=== PATIENT | male | born 1970 | race Caucasian/White ===

== ENCOUNTER 2017-04-20 20:31 | Emergency (ER) | payer MEDICARE, MEDICAID ==
[2017-04-20 20:54] VITALS: BP 115/80
--- NOTE | 2017-04-20 21:39 | UC ---
Milady Sauceda Edward, scribed for Tyler Mcnulty MD on 04/20/17 at 2114 . Ear Complaint HPI - HPI Summary HPI Summary: 46 y/o male presents to [facility] c/o R ear pain. There is pain in both ears starting a couple of weeks ago and getting progressively worse; pain is worse in the R ear. The pain is rated at a 1/10 characterized as an ache. Patient also has ear wax buildup in both ears. Patient went hiking a couple of weeks ago and has concerns for a tick bite. PMHx ear wax buildup and eczema. - History of Current Complaint Chief Complaint: UCEar Stated Complaint: TICK IN EAR Time Seen by Provider: 04/20/17 21:08 Hx Obtained From: Patient Onset/Duration: Gradual Onset Severity Initially: Mild Severity Currently: Mild Pain Intensity: 1 Pain Scale Used: 0-10 Numeric - Allergies/Home Medications Allergies/Adverse Reactions: Allergies Allergy/AdvReac Type Severity Reaction Status Date / Time Fructose Allergy Severe GI Upset Verified 04/20/17 20:54 Lactose Allergy Severe Diarrhea Verified 04/20/17 20:54 Tramadol Allergy Intermediate See Comment Verified 04/20/17 20:54 JUAN MANUEL'S WORT Allergy Severe MOUTH Uncoded 04/20/17 20:54 SWELLING PMH/Surg Hx/FS Hx/Imm Hx - Additional Past Medical History Additional PMH: Skin - eczema Previously Healthy: No - Surgical History Surgical History: Yes Surgery Procedure, Year, and Place: HEMORRHOID SURGERY - Family History Known Family History: Positive: Hypertension, Diabetes - Social History Alcohol Use: Weekly Alcohol Amount: "A FEW TIMES A WEEK" Substance Use Type: None Smoking Status (MU): Former Smoker Have You Smoked in the Last Year: No When Did the Patient Quit Smoking/Using Tobacco: 2004 - Immunization History Most Recent Tetanus Shot: UNSURE Review of Systems Constitutional: Negative Skin: Rash - Chronic eczema Eyes: Negative ENT: Ear Ache - Bilateral; worse in R ear, Other - Ear wax buildup Respiratory: Negative Cardiovascular: Negative Gastrointestinal: Negative Genitourinary: Negative Motor: Negative Neurovascular: Negative Musculoskeletal: Negative Neurological: Negative Psychological: Negative All Other Systems Reviewed And Are Negative: Yes Physical Exam Triage Information Reviewed: Yes Appearance: Well-Appearing, No Pain Distress Vital Signs: Initial Vital Signs Temp 98.1 F 04/20/17 20:48 Pulse 113 04/20/17 20:48 Resp 18 04/20/17 20:48 BP 115/80 04/20/17 20:48 Pulse Ox 100 04/20/17 20:48 Vital Signs Reviewed: Yes Eye Exam: Normal ENT: Positive: Other: - L ear - cerumen impaction, no FB seen. R TM visible, non -erythemous, some earwax in ear canal. At the opening to the external R ear canal there is some skin breakdown. No rhinorrhea Neck: Positive: Supple, Nontender Respiratory: Positive: Lungs clear, Normal breath sounds Cardiovascular: Positive: RRR Abdomen Description: Positive: Nontender, Soft Bowel Sounds: Positive: Present Musculoskeletal: Positive: Strength Intact, ROM Intact Neurological Exam: Normal Neurological: Positive: Alert Psychological Exam: Normal Skin Exam: Normal Ear Complaint Course/Dx - Course Course Of Treatment: MEDICATIONS REVIEWED. NO FB SEEN IN RT EAR. THERE IS SOME EAR WAX IN BOTH EARS. NO IMPACTION IN THE RIGHT, MILD IMPACTION IN THE LEFT. DISCUSSED RX CORTISPORIN OTIC OR DEBROX USE; PATIENT DECLINES, HE PREFERS TO F/ U WITH PMD. - Differential Dx/Diagnosis Provider Diagnoses: RIGHT EAR IRRITATION WITH B/L CERUMEN Discharge - Discharge Plan Condition: Stable Disposition: HOME Patient Education Materials: Cerumen Impaction (ED) Referrals: Milli Sparks MD [Primary Care Provider] - Additional Instructions: FOLLOW UP WITH YOUR DOCTOR. RETURN TO THE EMERGENCY DEPARTMENT FOR ANY WORSENING OF YOUR CONDITION OR QUESTIONS OR CONCERNS. The documentation as recorded by the Milady tanner Edward accurately reflects the service I personally performed and the decisions made by me, Tyler Mcnulty MD.
== END 2017-04-20 21:34 | disposition home or self-care (01) ==
LOC: UCEAST 20:31
DX: H61.23 Impacted cerumen, bilateral (principal); L30.9 Dermatitis, unspecified; Z88.5 Allergy status to narcotic agent; Z91.011 Allergy to milk products; Z87.891 Personal history of nicotine dependence
CPT/HCPCS: 99211; G0463

== ENCOUNTER 2019-08-05 22:17 | Emergency (ER) | payer MEDICARE, MEDICAID ==
[2019-08-05] MEDS ORDERED: NS 0.9% 1000 ML** 1,000 ML IV ONE (22:34)
[2019-08-05 22:57] LABS: ABS Lymphocytes 1.1 10^3/ul (1.0-4.8); ABS Monocytes 0.5 10^3/ul (0-0.8); Eosinophil % 0.3 %; Hematocrit 41 % (42-52); Hemoglobin 13.7 g/dL (14.0-18.0); Lymphocyte % 16.4 %; Mean Corpuscular HGB Conc 34 g/dL (31-36); Mean Corpuscular Hemoglobin 30 pg (27-31); Mean Corpuscular Volume 89 fL (80-94); Mean Platelet Volume 7.2 fL (7.4-10.4); Platelet Count 296 10^3/uL (150-450); Red Blood Count 4.56 10^6 /uL (4.18-5.48); Red Cell Distribution Width 14 % (10-15); White Blood Count 6.7 10^3/uL (3.5-10.8)
[2019-08-05 23:03] LABS: INR 0.98 (0.82-1.09)
[2019-08-05 23:14] LABS: ALT 14 U/L (7-52); AST 14 U/L (13-39); Albumin 4.6 g/dL (3.2-5.2); Albumin/Globulin Ratio 1.6 (1-3); Alkaline Phosphatase 51 U/L (34-104); Anion Gap 8 mmol/L (2-11); BUN/Creatinine Ratio 12.4 (8-20); Blood Urea Nitrogen 12 mg/dL (6-24); CO2 Carbon Dioxide 26 mmol/L (22-32); Calcium 9.7 mg/dL (8.6-10.3); Chloride 103 mmol/L (101-111); EGFR African American 100.4 (>60); Globulin 2.8 g/dL (2-4); Glucose 128 mg/dL (70-100); Magnesium 1.8 mg/dL (1.9-2.7); Potassium 3.5 mmol/L (3.5-5.0); Sodium 137 mmol/L (135-145); Total Protein 7.4 g/dL (6.4-8.9)
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
[2019-08-05 23:20] LABS: Alcohol < 10 mg/dL (<10)
[2019-08-05 23:36] LABS: TSH (Thyroid Stimulating Horm) 1.32 mcIU/mL (0.34-5.60)
[2019-08-05 23:44] LABS: Urine Appearance Clear; Urine Bilirubin Negative (Negative); Urine Blood Negative (Negative); Urine Color Yellow; Urine Glucose Negative (Negative); Urine Ketones Negative (Negative); Urine Nitrite Negative (Negative); Urine Protein Negative (Negative); Urine Specific Gravity 1.005 (1.010-1.030); Urine Urobilinogen Negative (Negative)
[2019-08-05 23:54] LABS: Urine Benzodiazepine Screen None Detected (None Detect); Urine Opiates Screen None Detected (None Detect)
[2019-08-06 01:18] VITALS: BP 122/82
== END 2019-08-06 01:18 | disposition home or self-care (01) ==
LOC: ED 22:17
DX: R55 Syncope and collapse (principal); F31.9 Bipolar disorder, unspecified; Z87.891 Personal history of nicotine dependence; Z88.5 Allergy status to narcotic agent; Z88.8 Allergy status to other drugs, medicaments and biological substances
CPT/HCPCS: 36415; 71045; 80053; 80307; 80320; 81003; 83605; 83735; 84443; 84484; 85025; 85379; 85610; 93005; 96360; 99282; G0480